=== PATIENT | female | born 1935 | race Caucasian/White ===

== ENCOUNTER 2017-07-13 23:23 | Emergency (ER) | payer MEDICARE, OTHER ==
[2017-07-14 03:38] VITALS: BP 150/88
== END 2017-07-14 03:38 | disposition home or self-care (01) ==
LOC: ED 23:23
DX: T78.40XA Allergy, unspecified, initial encounter (principal); R21 Rash and other nonspecific skin eruption; L29.9 Pruritus, unspecified; I10 Essential (primary) hypertension; X58.XXXA Exposure to other specified factors, initial encounter
CPT/HCPCS: J1200; J2930; J3490; J7030